=== PATIENT | female | born 1970 | race African-American/Black ===

== ENCOUNTER 2022-09-10 13:53 | Emergency (ER) | payer MEDICAID ==
[~2022-09-10] VITALS: Ht 160 cm; Wt 65.0 kg
[2022-09-10 13:57] VITALS: BP 104/63
[2022-09-10] MEDS ORDERED: FERR324T4 MT (14:29)
== END 2022-09-10 14:45 | disposition left against medical advice (07) ==
LOC: ER 14:36
DX: R55 Syncope and collapse (principal); I10 Essential (primary) hypertension; M19.90 Unspecified osteoarthritis, unspecified site; M54.30 Sciatica, unspecified side
CPT/HCPCS: 99283